=== PATIENT | female | born 1940 | race Caucasian/White ===

== ENCOUNTER 2017-06-21 16:08 | Inpatient (IN) | payer MEDICARE, BC ==
[~2017-06-21] VITALS: Ht 172.7 cm; Wt 72.6 kg
--- NOTE | ~2017-06-21 | HP ---
PATIENT: TG VARGHESE MEDICAL RECORD: [id number] ACCOUNT: [id number] LOCATION:D.[facility] : 44 ADMISSION DATE: 06/21/17 HISTORY AND PHYSICAL EXAMINATION DATE OF ADMISSION: 06/21/2017 HISTORY OF PRESENT ILLNESS: I saw this patient on 11 p.m. on 06/22/2017. Her primary care physicians have been the [facility] and they do not come here anymore. She is a resident of [place]. She fell there today, suffered a laceration over her left eyebrow. There was no known loss of consciousness. She was brought to the ER where the laceration was repaired. CT evaluation was done of the facial bones, cervical spine and of the head and there was an acute right frontal, temporal, and parietal subdural hematoma noted. There was no definite midline shift. She is admitted to the hospital and Dr. Alexis is consulted. PAST MEDICAL AND SURGICAL HISTORY: Significant for dementia, osteoarthritis, depression, hypothyroidism, overactive bladder, hypertension, non-insulin dependent diabetes, anxiety and hyperlipidemia. PAST SURGICAL HISTORY: None known. ALLERGIES: BELLADONNA, ERYTHROMYCIN, NIACIN, PENICILLIN, AND SULFA. HOME MEDICATIONS: Include Aricept or donepezil 10 mg once a day; lisinopril/ hydrochlorothiazide 20/12.5 once a day; amitriptyline 25 mg p.o. at bedtime; Wellbutrin-XL 300 once a day; citalopram 60 mg daily; lorazepam 0.5 mg p.o. t.i.d.; Namenda XR 28 once a day; Meloxicam 7.5 mg once a day; omeprazole 20 mg once a day; levothyroxine ____ once a day; metformin 500 mg twice a day, Toviaz 4 mg once a day. HABITS: She never smoked. No alcohol or drugs. FAMILY HISTORY: Mother had cancer. Brother had hypertension. SOCIAL HISTORY: Unknown. REVIEW OF SYSTEMS: Unobtainable in this patient with dementia. She is not considered an accurate source for information that she says her primary care doctor is her father who is a chiropractor. PHYSICAL EXAMINATION: VITAL SIGNS: Temperature 97.6, pulse 103, respirations 19, blood pressure 182/92, blood pressure has come down to 123/92. GENERAL: She is easily awakened. She is tearful. She is very demented. She does not know where she is. She states she does not hurt anywhere at all. HEENT: With a laceration above the left eye with some mild swelling noted there. NECK: Supple. HEART: Regular rate and rhythm. LUNGS: Clear. ABDOMEN: Soft, flat, nontender. EXTREMITIES: No edema. NEUROLOGIC: Again, she is very pleasantly confused, which may be her baseline HISTORY AND PHYSICAL [id number] TG VARGHESE if she does have dementia. She follows commands well. LABORATORY DATA: CBC with a white count of 7600, hemoglobin 12.9 and platelet count of 176. INR 1.02. Basic metabolic panel is all essentially normal. Glucose is 120. Liver functions are all normal. CT of the cervical spine shows degenerative changes, no acute fracture. CT of the facial bones shows no acute fracture. CT of the head shows acute right frontal, temporal, parietal, subdural hematoma. No definite midline shift, chronic small vessel ischemic changes are seen. ASSESSMENT: 1. Fall at [place], suffering a right subdural hematoma. 2. Dementia. PLAN: Dr. Alexis has been consulted. She is on dexamethasone, labetalol. Other tests or procedures as warranted. She is a DNR from [place] and we will continue to honor that here. TRANSINT:[id number] Voice Confirmation ID: [id number] DOCUMENT ID: [id number] HENRRY ARREOLA MD at 1739 CC: [id number] DICTATION DATE: 06/22/17 1202 ELECTRICAL MAINTENANCE MECHANIC: 06/22/17 1251 ADM IN [place] [id number] [place] [address]
[2017-06-21 17:37] LABS: BASOPHILS 0.3 % (0-2); EOSINOPHILS 2.8 % (0-7); HEMATOCRIT 39.3 % (36.0-48.0); HEMOGLOBIN 12.9 g/dL (12-16); IMMATURE GRANULOCYTES 1.2 % (0-5); MCH 33.4 pg (26.0-34.0); MCHC 32.8 g/dL (31.0-37.0); MCV 101.8 fL (80.0-100.0); MEAN PLATELET VOLUME 10.4 fL (7.4-10.4); MONOCYTES 8.3 % (2-11); NEUTROPHILS 72.4 % (40-80); PLATELET COUNT 176 10x3/uL (130-400); RBC 3.86 10x6/uL (4.00-5.40); RDW 14.3 % (11.5-14.5); WBC 7.6 10x3/uL (4.8-10.8)
[2017-06-21 17:46] LABS: INR 1.02 (0.85-1.17)
[2017-06-21 17:52] LABS: ALBUMIN 3.4 g/dL (3.4-5.0); ANION GAP 9.8 mmol/L (8-16); BILIRUBIN - TOTAL 0.25 mg/dL (0.2-1.3); CARBON DIOXIDE 32.8 mmol/L (21.0-32.0); CREATININE - SERUM 1.2 mg/dL (0.6-1.3); POTASSIUM - SERUM 3.6 mmol/L (3.5-5.1); PROTEIN - SERUM 6.2 g/dL (6.4-8.2)
[2017-06-21 20:55] VITALS: BP 138/79; BMI 24.3
[2017-06-21 21:00] VITALS: BP 138/79
[2017-06-21 22:00] VITALS: BP 132/79
[2017-06-21 23:00] VITALS: BP 123/92
[2017-06-22] VITALS (8 sets, daily range): BP systolic 124–147; BP diastolic 66–82; Ht 172.7 cm; Wt 72.6 kg
[2017-06-22] MEDS ORDERED: ARICEPT10 MG PO (04:00)
[2017-06-22] MEDS ORDERED: CELEXA40 MG PO (04:00)
[2017-06-22] MEDS ORDERED: ELAVIL25 MG PO (04:01)
[2017-06-22] MEDS ORDERED: MOBIC7.5 MG PO (04:03)
[2017-06-22] MEDS ORDERED: NAMENDA XR28 MG PO (04:04)
[2017-06-22] MEDS ORDERED: OMEPRAZOLE20 M1 PO (04:05)
[2017-06-22] MEDS ORDERED: SYNTHROID50 MCG PO (04:06)
[2017-06-22] MEDS ORDERED: TOVIAZ4 MG PO (04:06)
[2017-06-22] MEDS ORDERED: ZESTORETIC 20-1 EACH PO (04:07)
[2017-06-22] MEDS ORDERED: BUPROPION XL300 MG PO (04:07)
[2017-06-22] MEDS ORDERED: GLUCOPHAGE500 MG PO (04:08)
[2017-06-22] MEDS ORDERED: ATIVAN0.5 MG PO (04:09)
[2017-06-23 00:43] VITALS: BP 125/55
[2017-06-23 05:02] VITALS: BP 123/48
[2017-06-23 09:30] VITALS: BP 136/57
[2017-06-23 12:07] VITALS: BP 137/68
[2017-06-23 16:12] VITALS: BP 149/85
[2017-06-23 22:07] VITALS: BP 159/55
[2017-06-24 00:25] VITALS: BP 155/62
[2017-06-24 05:54] VITALS: BP 167/75
[2017-06-24 08:44] VITALS: BP 164/70
[2017-06-24 12:34] VITALS: BP 150/72
[2017-06-24 17:18] VITALS: BP 158/63
[2017-06-24 21:17] VITALS: BP 153/73
[2017-06-25 00:44] VITALS: BP 146/70
[2017-06-25 06:49] VITALS: BP 170/75
[2017-06-25 08:53] VITALS: BP 93/62
[2017-06-25 13:34] VITALS: BP 185/75
[2017-06-25 16:53] VITALS: BP 154/66
[2017-06-25 20:00] VITALS: BP 156/59
[2017-06-26] VITALS: BP 154/58
[2017-06-26 04:00] VITALS: BP 158/70
[2017-06-26 08:56] VITALS: BP 168/73
[2017-06-26 11:49] VITALS: BP 142/56
== END 2017-06-26 15:35 | disposition home or self-care (01) | DRG 87 ==
LOC: D.ER 16:08 → D.MS 19:25 → EDBD 19:25 → D.ICU 19:25 → D.MS 06-22 20:50
PROVIDERS: Emergency Medicine; Nurse Practitioner Family
PROC: 0HQ1XZZ Repair Face Skin, External Approach (ICD-10-PCS; principal; 2017-06-21)
DX: S06.5X0A Traumatic subdural hemorrhage without loss of consciousness, initial encounter (principal); W19.XXXA Unspecified fall, initial encounter; S06.330A Contusion and laceration of cerebrum, unspecified, without loss of consciousness, initial encounter; S01.112A Laceration without foreign body of left eyelid and periocular area, initial encounter; F03.90 Unspecified dementia, unspecified severity, without behavioral disturbance, psychotic disturbance, mood disturbance, and anxiety; N32.81 Overactive bladder; I10 Essential (primary) hypertension; E11.9 Type 2 diabetes mellitus without complications; F41.9 Anxiety disorder, unspecified; E78.5 Hyperlipidemia, unspecified

== ENCOUNTER 2017-07-08 16:26 | Emergency (ER) | payer BC, MEDICARE ==
[2017-06-22 11:22] VITALS: BMI 24.3
[~2017-07-08 16:26] MED LIST: ARICEPT10 MG PO; ATIVAN0.5 MG PO; BUPROPION XL300 MG PO; CELEXA40 MG PO; ELAVIL25 MG PO; GLUCOPHAGE500 MG PO; MOBIC7.5 MG PO; NAMENDA XR28 MG PO; OMEPRAZOLE20 M1 PO; SYNTHROID50 MCG PO; TOVIAZ4 MG PO; ZESTORETIC 20-1 EACH PO
[2017-07-08 17:04] LABS: BASOPHILS 0.4 % (0-2); EOSINOPHILS 3.9 % (0-7); HEMATOCRIT 40.9 % (36.0-48.0); HEMOGLOBIN 13.5 g/dL (12-16); IMMATURE GRANULOCYTES 1.4 % (0-5); LYMPHOCYTES 18.6 % (15-50); MCH 33.4 pg (26.0-34.0); MCV 101.2 fL (80.0-100.0); MEAN PLATELET VOLUME 10.7 fL (7.4-10.4); NEUTROPHILS 66.7 % (40-80); PLATELET COUNT 206 10x3/uL (130-400); RBC 4.04 10x6/uL (4.00-5.40); RDW 13.5 % (11.5-14.5); WBC 7.9 10x3/uL (4.8-10.8)
[2017-07-08 17:36] LABS: ALBUMIN 3.4 g/dL (3.4-5.0); ANION GAP 13.8 mmol/L (8-16); BILIRUBIN - TOTAL 0.24 mg/dL (0.2-1.3); CARBON DIOXIDE 31.9 mmol/L (21.0-32.0); CREATININE - SERUM 1.2 mg/dL (0.6-1.3); POTASSIUM - SERUM 3.7 mmol/L (3.5-5.1); PROTEIN - SERUM 6.8 g/dL (6.4-8.2)
[2017-07-08 19:09] LABS: APPEARANCE CLEAR (CLEAR); COLOR YELLOW (YELLOW)
[2017-07-08 19:10] LABS: BILIRUBIN NEGATIVE (NEGATIVE); EPITHELIAL CELLS 0-5 /hpf (0-5); GLUCOSE NEGATIVE (NEGATIVE); KETONE NEGATIVE (NEGATIVE); NITRITE NEGATIVE (NEGATIVE); PROTEIN NEGATIVE (NEGATIVE); RED CELLS - URINE OCC /hpf (0-5); UROBILINOGEN NORMAL (NORMAL)
[2017-07-08 19:11] LABS: BACTERIA FEW /hpf (NONE SEEN)
== END 2017-07-08 20:20 | disposition home or self-care (01) ==
LOC: D.ER 16:26
PROVIDERS: Family Medicine
DX: K59.00 Constipation, unspecified (principal); R10.9 Unspecified abdominal pain

== ENCOUNTER 2017-12-01 09:48 | Emergency (ER) | payer BC, MEDICARE ==
[2017-12-01 09:51] VITALS: Ht 172.7 cm
[2017-12-01 10:39] LABS: APPEARANCE CLEAR (CLEAR); BILIRUBIN NEGATIVE (NEGATIVE); COLOR STRAW (YELLOW); GLUCOSE NEGATIVE (NEGATIVE); KETONE NEGATIVE (NEGATIVE); NITRITE NEGATIVE (NEGATIVE); PROTEIN NEGATIVE (NEGATIVE); UROBILINOGEN NORMAL (NORMAL)
[2017-12-01 10:49] LABS: BASOPHILS 0.4 % (0-2); EOSINOPHILS 1.6 % (0-7); HEMATOCRIT 38.4 % (36.0-48.0); HEMOGLOBIN 12.5 g/dL (12-16); IMMATURE GRANULOCYTES 1.3 % (0-5); LYMPHOCYTES 19.2 % (15-50); MCH 32.4 pg (26.0-34.0); MCHC 32.6 g/dL (31.0-37.0); MCV 99.5 fL (80.0-100.0); MEAN PLATELET VOLUME 10.9 fL (7.4-10.4); MONOCYTES 7.3 % (2-11); NEUTROPHILS 70.2 % (40-80); PLATELET COUNT 179 10x3/uL (130-400); RBC 3.86 10x6/uL (4.00-5.40); RDW 13.2 % (11.5-14.5); WBC 7.4 10x3/uL (4.8-10.8)
[2017-12-01 11:01] LABS: ALBUMIN 3.2 g/dL (3.4-5.0); ANION GAP 8.3 mmol/L (8-16); BILIRUBIN - TOTAL 0.3 mg/dL (0.2-1.3); CARBON DIOXIDE 32.4 mmol/L (21.0-32.0); CREATININE - SERUM 1.1 mg/dL (0.6-1.3); POTASSIUM - SERUM 3.7 mmol/L (3.5-5.1); PROTEIN - SERUM 6.7 g/dL (6.4-8.2)
[2017-12-01 13:39] VITALS: BP 134/58
== END 2017-12-01 13:40 ==
LOC: D.ER 09:48
PROVIDERS: Family Medicine
DX: R10.9 Unspecified abdominal pain (principal); F03.90 Unspecified dementia, unspecified severity, without behavioral disturbance, psychotic disturbance, mood disturbance, and anxiety

== ENCOUNTER 2018-05-19 15:03 | Emergency (ER) | payer BC, MEDICARE | END 2018-05-19 17:46 | disposition home or self-care (01) | LOC: D.ER 15:03 | DX: S80.01XA Contusion of right knee, initial encounter (principal); W18.30XA Fall on same level, unspecified, initial encounter; Y93.89 Activity, other specified; Y92.099 Unspecified place in other non-institutional residence as the place of occurrence of the external cause; M25.561 Pain in right knee; F03.90 Unspecified dementia, unspecified severity, without behavioral disturbance, psychotic disturbance, mood disturbance, and anxiety; E11.9 Type 2 diabetes mellitus without complications; I10 Essential (primary) hypertension ==

== ENCOUNTER 2018-11-26 23:04 | Inpatient (IN) | payer MEDICARE, BC ==
[~2018-11-26 23:04] MED LIST changes: +ACETAMINOPHEN500 M1 PO; +CYCLOBENZAPRINE10 MG PO
[2018-11-26] MEDS ORDERED: ALBUTEROL SULF8.5 GM INH (23:23)
[2018-11-26] MEDS ORDERED: BROMFED-DM COU473 ML PO (23:26)
[2018-11-26] MEDS ORDERED: IMODIUM2 MG PO (23:28)
[2018-11-26] MEDS ORDERED: MIRALAX17 GM PO (23:30)
[2018-11-26] MEDS ORDERED: SEROQUEL25 MG PO (23:32)
[2018-11-27] VITALS (8 sets, daily range): BP systolic 95–149; BP diastolic 46–68; BMI 33.5; BMI 33.4
[2018-11-27 00:13] LABS: APTT 26.1 SECONDS (22.8-39.4); INR 0.97 (0.85-1.17); PROTIME 12.4 SECONDS (11.6-15.0)
--- NOTE | 2018-11-27 00:14 | NUR ---
URINE SENT TO LAB
[2018-11-27 00:24] LABS: BASOPHILS 0.2 % (0-2); EOSINOPHILS 3.3 % (0-7); HEMATOCRIT 36.4 % (36.0-48.0); HEMOGLOBIN 12.4 g/dL (12-16); IMMATURE GRANULOCYTES 0.6 % (0-5); LYMPHOCYTES 27.7 % (15-50); MCH 33.6 pg (26.0-34.0); MCHC 34.1 g/dL (31.0-37.0); MCV 98.6 fL (80.0-100.0); MEAN PLATELET VOLUME 10.7 fL (7.4-10.4); MONOCYTES 8.5 % (2-11); NEUTROPHILS 59.7 % (40-80); PLATELET COUNT 199 10x3/uL (130-400); RBC 3.69 10x6/uL (4.00-5.40); RDW 13.1 % (11.5-14.5)
[2018-11-27 00:31] LABS: ALBUMIN 3.3 g/dL (3.4-5.0); ALKALINE PHOSPHATASE 94 U/L (46-116); ALT (SGPT) 19 U/L (10-68); BILIRUBIN - TOTAL 0.31 mg/dL (0.2-1.3); CALC OSMOLALITY 284 mosm/kg (275-300); CALCIUM 8.9 mg/dL (8.5-10.1); CARBON DIOXIDE 30.2 mmol/L (21.0-32.0); CHLORIDE - SERUM 101 mmol/L (98-107); GLUCOSE 138 mg/dL (74-106); POTASSIUM - SERUM 3.3 mmol/L (3.5-5.1); PROTEIN - SERUM 6.8 g/dL (6.4-8.2); SODIUM 141 mmol/L (136-145); UREA NITROGEN 17 mg/dL (7-18); eGFR NON AFRICAN AMERICAN 57 mL/min (90-120)
[2018-11-27 00:32] LABS: CKMB 0.5 U/L (0.0-3.6); CREATINE KINASE 35 UL (21-215)
[2018-11-27 00:35] LABS: TROPONIN-I < 0.017 ng/mL (0.000-0.060)
[2018-11-27 00:39] LABS: APPEARANCE CLEAR (CLEAR); COLOR YELLOW (YELLOW); SPECIFIC GRAVITY 1.025 (1.005-1.020)
[2018-11-27 00:40] LABS: BILIRUBIN NEGATIVE (NEGATIVE); GLUCOSE NEGATIVE (NEGATIVE); KETONE NEGATIVE (NEGATIVE); NITRITE NEGATIVE (NEGATIVE); PROTEIN TRACE mg/dL (NEGATIVE); UROBILINOGEN NORMAL (NORMAL)
[2018-11-27 00:41] LABS: BACTERIA NONE SEEN /hpf (NONE SEEN); EPITHELIAL CELLS 0-5 /hpf (0-5); RED CELLS - URINE NONE SEEN /hpf (0-5); WHITE CELLS - URINE 0-5 /hpf (0-5)
--- NOTE | 2018-11-27 00:44 | NUR ---
NOTIFIED EDP CARMENCITA OF PT CRITICAL LAB OF LACTIC ACID 2.9. NO VERBAL ORDERS GIVEN
--- NOTE | 2018-11-27 01:22 | NUR ---
PT ASSISTED WITH BEDPAN.
--- NOTE | 2018-11-27 02:06 | NUR ---
PT ARRIVED TO M3 WITH HOSPITAL STAFF, PT ALERT, BUT DISORIENTED TO PLACE, TIME AND SITUATION.
--- NOTE | 2018-11-27 03:54 | NUR ---
ASSISTED PT WITH BEDPAN.
--- NOTE | 2018-11-27 08:18 | NUR ---
THE PATIENT APPEARED TO BE SLEEPING BUT EASILY AWOKE WHEN STAFF ENTERED HER ROOM. BED IS IN THE LOW POSITION WITH SIDERAILS X2 AND CALL LIGHT WITHIN REACH. THE PATIENT WAS EDUCATED ON AND DEMONSTRATES UNDERSTANDING OF CALL LIGHT. THE PATIENT APPEARS COMFORTABLE WITH NO QUESTIONS OR CONCERNS AT THIS TIME.
--- NOTE | 2018-11-27 11:10 | MORECARE ---
CASE MANAGEMENT DISCHARGE SUMMARY PATIENT: TG VARGHESE UNIT: [id number] ADM DATE: 11/27/18 AGE: 78 : 42 SEX: F ROOM/BED: D.1209 AUTHOR: ARA REESE PHYSICIAN: REFERRING PHYSICIAN: CARIN SERRANO MD DATE OF SERVICE: 11/27/18 Discharge Plan Patient Name: TG VARGHESE [facility] [facility] 1940 Planned Disposition: Anticipated Discharge Date: Discharge Date: Expected LOS: Initial Reviewer: [email or web address] Initial Review Date: 11/27/2018 Generated: 11/27/18 12:10 pm Patient Name: TG VARGHESE Page 98011 at 1110 All edits/amendments must be made on the electronic document DICTATION DATE: 11/27/18 1110 SUPERVISOR DECORATING: AVIS 11/27/18 1110 RPT#: [id number] DC DATE: STATUS: ADM IN [facility] [address] [place] [address] END OF REPORT
[2018-11-27 11:22] LABS: BASOPHILS 0.2 % (0-2); EOSINOPHILS 0 % (0-7); HEMOGLOBIN 11.8 g/dL (12-16); LYMPHOCYTES 7.7 % (15-50); MCHC 33.7 g/dL (31.0-37.0); MCV 97.8 fL (80.0-100.0); MEAN PLATELET VOLUME 10.4 fL (7.4-10.4); MONOCYTES 3.3 % (2-11); NEUTROPHILS 86.8 % (40-80); PLATELET COUNT 187 10x3/uL (130-400); RBC 3.58 10x6/uL (4.00-5.40); RDW 12.7 % (11.5-14.5)
[2018-11-27 11:32] LABS: WBC 6.1 10x3/uL (4.8-10.8)
--- NOTE | 2018-11-27 14:36 | MORECARE ---
CASE MANAGEMENT DISCHARGE SUMMARY PATIENT: TG VARGHESE UNIT: [id number] ADM DATE: 11/27/18 AGE: 78 : 42 SEX: F ROOM/BED: D.1209 AUTHOR: ARA REESE PHYSICIAN: REFERRING PHYSICIAN: CARIN SERRANO MD DATE OF SERVICE: 11/27/18 Discharge Plan Patient Name: TG VARGHESE Facility: [facility]:[place] : 1940 Planned Disposition: Anticipated Discharge Date: Discharge Date: Expected LOS: Initial Reviewer: [email or web address] Initial Review Date: 11/27/2018 Generated: 11/27/18 3:36 pm Comments DCP- Discharge Planning Updated by [email or web address]: Shelbie Hartley on 11/27/18 1:[address] Patient Name: TG VARGHESE Admission Status: ER Accout number: [id number] Admission Date: 11-27-2018 : 1940 Admission Diagnosis: Attending: CARIN SERRANO Current LOS: 1 Anticipated DC Date: Planned Disposition: Primary Insurance: MEDICARE A & B Discharge Planning Comments: PATIENT IS A RESIDENT OF [facility]. PATIENT VERY CONFUSED. CM WILL FOLLOW AND ASSIST NEEDED WITH DC PLANNING/NEEDS. Residential Care Facility Manager: Shelbie Hartley DCPIA - Discharge Planning Initial Assessment Updated by [email or web address]: Shelbie Hartley on 11/27/18 2:29 pm * Is the patient Alert and Oriented? No * Preadmission Environment Discharge Planner Usp * Facility Name [facility] Last DP export: 11/27/18 10:10 a Patient Name: TG VARGHESE Page 54584 at 1436 All edits/amendments must be made on the electronic document DICTATION DATE: 11/27/181434 CASINO GAMING INSPECTOR: AVIS 11/27/18 1435 RPT#: [id number] DC DATE: STATUS: ADM IN [facility] [address] [place] [address] END OF REPORT
--- NOTE | 2018-11-27 19:35 | NUR ---
LYING IN BED. ALERT AND ORIENTED TO SELF ONLY. CONFUSED AND FORGETFUL. ANIL ALARM ON FOR PT SAFETY. RESP IRREG. SOB AT TIMES. O2 @ 2L/NC. INCONT OF URINE AT THIS TIME. BRIEFS CHANGED AND CARA CARE PERFORMED. NONPROD COUGH AT TIMES. SALINE LOCK NOTED TO LT FOREARM. NO DISTRESS. SR ELEVATED X3. CL IN REACH.
[2018-11-28 00:15] VITALS: BP 116/55
--- NOTE | 2018-11-28 01:56 | NUR ---
HAS BEEN AWAKE ALL NIGHT. CONFUSED AND TRYING TO GET OOB WITHOUT ASSIST CAUSING BED ALARM TO ACTIVATE. UNABLE TO STAND WITHOUT ASSIST X1-2. SOB NOTED AT TIMES. O2 @ 2L/NC. SR ELEVATED X3. CL IN REACH.
[2018-11-28 04:28] VITALS: BP 147/58
[2018-11-28 07:22] LABS: BASOPHILS 0.3 % (0-2); HEMATOCRIT 38.1 % (36.0-48.0); HEMOGLOBIN 12.4 g/dL (12-16); IMMATURE GRANULOCYTES 1.7 % (0-5); LYMPHOCYTES 23.6 % (15-50); MCH 32.5 pg (26.0-34.0); MCHC 32.5 g/dL (31.0-37.0); MEAN PLATELET VOLUME 10.5 fL (7.4-10.4); MONOCYTES 10.5 % (2-11); NEUTROPHILS 62.9 % (40-80); PLATELET COUNT 200 10x3/uL (130-400); RBC 3.81 10x6/uL (4.00-5.40); WBC 7.6 10x3/uL (4.8-10.8)
--- NOTE | 2018-11-28 07:27 | NUR ---
THE PATIENT WAS AWAKE AND LYING IN BED WHEN STAFF ENTERED HER ROOM. BED IS IN THE LOW POSITION WITH SIDERAILS X3 AND CALL LIGHT WITHIN REACH. BED ALARMS CHECKED AND FUNCTIONING PEOPERLY. THE PATIENT IS UNABLE TO DEMONSTRATE THE NEED TO CALL FOR STAFF WITH ASSISTANCE WITH ADLS. THE PATIENT APPEARS COMFORTABLE WITH NO QUESTIONS OR CONCERNS AT THIS TIME.
[2018-11-28 07:33] LABS: ANION GAP 13.2 mmol/L (8-16); CALCIUM 9.1 mg/dL (8.5-10.1); POTASSIUM - SERUM 3.2 mmol/L (3.5-5.1)
[2018-11-28 07:35] LABS: CREATININE - SERUM 1.3 mg/dL (0.6-1.3)
[2018-11-28 08:02] VITALS: BP 144/53
[2018-11-28] MEDS ORDERED: LEVAQUIN750 MG PO (09:05)
--- NOTE | 2018-11-28 10:02 | MORECARE ---
CASE MANAGEMENT DISCHARGE SUMMARY PATIENT: TG VARGHESE UNIT: [id number] ADM DATE: 11/27/18 AGE: 78 : 42 SEX: F ROOM/BED: D.1209 AUTHOR: ARA REESE PHYSICIAN: REFERRING PHYSICIAN: CARIN SERRANO MD DATE OF SERVICE: 11/28/18 Discharge Plan Patient Name: TG VARGHESE Facility: [facility]:[place] : 1940 Planned Disposition: Anticipated Discharge Date: Discharge Date: Expected LOS: Initial Reviewer: [id number] Initial Review Date: 11/27/2018 Generated: 11/28/18 11:01 am Comments DCP- Discharge Planning Updated by [email or web address]: Shelbie Hartley on 11/28/18 8:[address] Patient Name: TG VARGHESE Admission Status: ER Accout number: [id number] Admission Date: 11-27-2018 : 1940 Admission Diagnosis: Attending: CARIN SERRANO Current LOS: 1 Anticipated DC Date: Planned Disposition: Primary Insurance: MEDICARE A & B Discharge Planning Comments: PATIENT IS A RESIDENT OF [facility], IT IS ASSISTED LIVING. CM CALLED [facility] AT [phone] TO VERIFY IS ASSISTED LIVING AND TO SEE IF PATIENT IS NORMALLY CONFUSED TO PLACE AND TIME, ADMINISTRATION WAS IN A MEETING, WE NEED TO CALL BACK. CM TO FOLLOW AND ASSIST NEEDED. Environmental Compliance Manager: Shelbie Hartley DCP- Discharge Planning Updated by [id number]: Shelbie Hartley on 11/27/18 1:[address] Patient Name: TG VARGHESE Admission Status: ER Accout number: [id number] Admission Date: 11-27-2018 : 1940 Admission Diagnosis: Attending: CARIN SERRANO Current LOS: 1 Anticipated DC Date: Planned Disposition: Primary Insurance: MEDICARE A & B Discharge Planning Comments: PATIENT IS A RESIDENT OF [facility]. PATIENT VERY CONFUSED. CM WILL FOLLOW AND ASSIST NEEDED WITH DC PLANNING/NEEDS. Environmental Compliance Manager: Shelbie Hartley DCPIA - Discharge Planning Initial Assessment Updated by [email or web address]: Shelbie Hartley on 11/27/18 2:29 pm * Is the patient Alert and Oriented? No * Preadmission Environment [facility] * Facility Name [facility] DP export: 11/27/18 1:36 p Patient Name: TG VARGHESE Page 85107 at 1002 All edits/amendments must be made on the electronic document DICTATION DATE: 11/28/18 100 GANG RIDER: AVIS 11/28/18 1001 RPT#: [id number] DC DATE: STATUS: ADM IN [facility] [address] [place] [address] END OF REPORT
--- NOTE | 2018-11-28 11:08 | MORECARE ---
CASE MANAGEMENT DISCHARGE SUMMARY PATIENT: TG VARGHESE UNIT: [id number] ADM DATE: 11/27/18 AGE: 78 : 42 SEX: F ROOM/BED: D.1209 AUTHOR: ARA REESE PHYSICIAN: REFERRING PHYSICIAN: CARIN SERRANO MD DATE OF SERVICE: 11/28/18 Discharge Plan Patient Name: TG VARGHESE Facility: [facility]:[place] : 1940 Planned Disposition: Anticipated Discharge Date: Discharge Date: Expected LOS: Initial Reviewer: [id number] Initial Review Date: 11/27/2018 Generated: 11/28/18 12:08 pm Comments DCP- Discharge Planning Updated by [email or web address]: Shelbie Hartley on 11/28/18 10:[address] Patient Name: TG VARGHESE Admission Status: ER Accout number: [id number] Admission Date: 11-27-2018 : 1940 Admission Diagnosis: Attending: CARIN SERRANO Current LOS: 1 Anticipated DC Date: Planned Disposition: Primary Insurance: MEDICARE A & B Discharge Planning Comments: PATIENT IS A RESIDENT OF [facility], IT IS ASSISTED LIVING. CM CALLED [facility] AT [phone] TO VERIFY IS ASSISTED LIVING AND TO SEE IF PATIENT IS NORMALLY CONFUSED TO PLACE AND TIME, ADMINISTRATION WAS IN A MEETING, WE NEED TO CALL BACK. CM TO FOLLOW AND ASSIST NEEDED. Watch Crystal Edge Grinder: Shelbie Hartley Appended by Shelbie Hartley on 11/28/2018 11:07 CDT: CM SPOKE WITH [facility] AND THEY STATE SHE WAS PREVIOUSLY ON HOSPICE THROUGH [facility] AND WANTS AN ORDER TO RESUME. DR. SCHWAB NOTIFIED, WAITING FOR CALL BACK. [facility] NUMBER TO CALL IS [phone] AND FAX IS [phone]. IF TO RETURN TO HOSPICE, FAX PAPERS TO [facility] AND [facility] AND NOTIFY [facility] SO THEY CAN PICK HER UP. DCP- Discharge Planning Updated by [email or web address]: Shelbie Hartley on 11/27/18 1:[address] Patient Name: TG VARGHESE Admission Status: ER Accout number: [id number] Admission Date: 11-27-2018 : 1940 Admission Diagnosis: Attending: CARIN SERRANO Current LOS: 1 Anticipated DC Date: Planned Disposition: Primary Insurance: MEDICARE A & B Discharge Planning Comments: PATIENT IS A RESIDENT OF [facility]. PATIENT VERY CONFUSED. CM WILL FOLLOW AND ASSIST NEEDED WITH DC PLANNING/NEEDS. Watch Crystal Edge Grinder: Shelbie Hartley DCPIA - Discharge Planning Initial Assessment Updated by [email or web address]: Shelbie Hartley on 11/27/18 2:29 pm * Is the patient Alert and Oriented? No * Preadmission Environment Intermediate Intermediate * Facility Name [facility] Last DP export: 11/28/18 9:01 a Patient Name: TG VARGHESE Page 59227 at 1108 All edits/amendments must be made on the electronic document DICTATION DATE: 11/28/181107 BASTING PULLER: AVIS 11/28/18 1108 RPT#: [id number] DC DATE: STATUS: ADM IN [facility] [address] [place] [address] END OF REPORT
--- NOTE | 2018-11-28 11:15 | MORECARE ---
CASE MANAGEMENT DISCHARGE SUMMARY PATIENT: TG VARGHESE UNIT: [id number] ADM DATE: 11/27/18 AGE: 78 : 42 SEX: F ROOM/BED: D.1209 AUTHOR: ARA REESE PHYSICIAN: REFERRING PHYSICIAN: CARIN SERRANO MD DATE OF SERVICE: 11/28/18 Discharge Plan Patient Name: TG VARGHESE Facility: [facility]:[place] : 1940 Planned Disposition: Anticipated Discharge Date: Discharge Date: Expected LOS: Initial Reviewer: [email or web address] Initial Review Date: 11/27/2018 Generated: 11/28/18 12:14 pm Comments DCP- Discharge Planning Updated by [email or web address]: Shelbie Hartley on 11/28/18 10:[address] Patient Name: TG VARGHESE Admission Status: ER Accout number: [id number] Admission Date: 11-27-2018 : 1940 Admission Diagnosis: Attending: CARIN SERRANO Current LOS: 1 Anticipated DC Date: Planned Disposition: Primary Insurance: MEDICARE A & B Discharge Planning Comments: PATIENT IS A RESIDENT OF [facility], IT IS ASSISTED LIVING. CM CALLED [facility] AT [phone] TO VERIFY IS ASSISTED LIVING AND TO SEE IF PATIENT IS NORMALLY CONFUSED TO PLACE AND TIME, ADMINISTRATION WAS IN A MEETING, WE NEED TO CALL BACK. CM TO FOLLOW AND ASSIST NEEDED. Supervisor Wool Shearing: Shelbie Hartley Appended by Shelbie Hartley on 11/28/2018 11:07 CDT: [facility] AND THEY STATE SHE WAS PREVIOUSLY ON HOSPICE THROUGH [facility] AND WANTS AN ORDER TO RESUME. DR. SCHWAB NOTIFIED, WAITING FOR CALL BACK. [facility] NUMBER TO CALL IS [phone] AND FAX IS [phone]. IF TO RETURN TO HOSPICE, FAX PAPERS TO [facility] AND [facility] AND NOTIFY [facility] SO THEY CAN PICK HER UP. DCP- Discharge Planning Updated by [email or web address]: Shelbie Hartley on 11/27/18 1:[address] Patient Name: TG VARGHESE Admission Status: ER Accout number: [id number] Admission Date: 11-27-2018 : 1940 Admission Diagnosis: Attending: CARIN SERRANO Current LOS: 1 Anticipated DC Date: Planned Disposition: Primary Insurance: MEDICARE A & B Discharge Planning Comments: PATIENT IS A RESIDENT OF [facility]. PATIENT VERY CONFUSED. CM WILL FOLLOW AND ASSIST NEEDED WITH DC PLANNING/NEEDS. Supervisor Wool Shearing: Shelbie Hartley DCPIA - Discharge Planning Initial Assessment Updated by [email or web address]: Shelbie Hartley on 11/27/18 2:29 pm * Is the patient Alert and Oriented? No * Preadmission Environment Snf [facility] * Facility Name [facility] External Providers External Provider: OTHER-OTHER Next Contact Date: Service Request Date: Service Type: Resolution: Reviewer: Comments: External Provider: [facility] Next Contact Date: Service Request Date: Service Type: Resolution: Reviewer: Comments: Last DP export: 11/28/18 10:08 a Patient Name: TG VARGHESE Page 59237 at 1115 All edits/amendments must be made on the electronic document DICTATION DATE: 11/28/18 1114 LOADING UNIT TOOL SETTER: AVIS 11/28/18 1114 RPT#: [id number] DC DATE: STATUS: ADM IN [facility] [address] [place] [address] END OF REPORT
--- NOTE | 2018-11-28 11:22 | MORECARE ---
CASE MANAGEMENT DISCHARGE SUMMARY PATIENT: TG VARGHESE UNIT: [id number] ADM DATE: 11/27/18 AGE: 78 : 42 SEX: F ROOM/BED: D.1209 AUTHOR: MARY ANNDOC PHYSICIAN: REFERRING PHYSICIAN: CARIN SERRANO MD DATE OF SERVICE: 11/28/18 Discharge Plan Patient Name: TG VARGHESE Facility: [facility]:[place] : 1940 Planned Disposition: Anticipated Discharge Date: Discharge Date: Expected LOS: Initial Reviewer: [email or web address] Initial Review Date: 11/27/2018 Generated: 11/28/18 12:22 pm Comments DCP- Discharge Planning Updated by [email or web address]: Shelbie Hartley on 11/28/18 10:[address] Patient Name: TG VARGHESE Admission Status: ER Accout number: [id number] Admission Date: 11-27-2018 : 1940 Admission Diagnosis: Attending: CARIN SERRANO Current LOS: 1 Anticipated DC Date: Planned Disposition: Primary Insurance: MEDICARE A & B Discharge Planning Comments: PATIENT IS A RESIDENT OF [facility], IT IS ASSISTED LIVING. CALLED [facility] AT [phone] TO VERIFY IS ASSISTED LIVING AND TO SEE IF PATIENT IS NORMALLY CONFUSED TO PLACE AND TIME, ADMINISTRATION WAS IN A MEETING, WE NEED TO CALL BACK. CM TO FOLLOW AND ASSIST NEEDED. Presser Hand: Shelbie Hartley Appended by Shelbie Hartley on 11/28/2018 11:07 CDT: CM SPOKE WITH [facility] AND THEY STATE SHE WAS PREVIOUSLY ON HOSPICE THROUGH [facility] AND WANTS AN ORDER TO RESUME. DR. SCHWAB NOTIFIED, WAITING FOR CALL BACK. [facility] NUMBER TO CALL IS [phone] AND FAX IS [phone]. IF TO RETURN TO HOSPICE, FAX PAPERS TO [facility] AND [facility] AND NOTIFY [facility] SO THEY CAN P[facility] HER [facility]. Appended by Shelbie Hartley on 11/28/2018 11:20 CDT: CM FAXED DOCUMENTS TO [facility] AND [facility]. DCP- Discharge Planning Updated by [email or web address]: Shelbie Hartley on 11/27/18 1:[address] Patient Name: TG VARGHESE Admission Status: ER Accout number: [id number] Admission Date: 11-27-2018 : 1940 Admission Diagnosis: Attending: CARIN SERRANO Current LOS: 1 Anticipated DC Date: Planned Disposition: Primary Insurance: MEDICARE A & B Discharge Planning Comments: PATIENT IS A RESIDENT OF [facility]. PATIENT VERY CONFUSED. CM WILL FOLLOW AND ASSIST NEEDED WITH DC PLANNING/NEEDS. Presser Hand: Shelbie Hartley DCPIA - Discharge Planning Initial Assessment Updated by [id number]: Shelbie Hartley on 11/27/18 2:29 pm * Is the patient Alert and Oriented? No * Preadmission Environment Process [facility] * Facility Name [facility] Last DP export: 11/28/18 10:15 a Patient Name: TG VARGHESE Page 40731 at 1122 All edits/amendments must be made on the electronic document DICTATION DATE: 11/28/18 112 VACUUM FRAME OPERATOR: AVIS 11/28/18 1121 RPT#: [id number] DC DATE: STATUS: ADM IN [facility] [address] [place] [address] END OF REPORT
--- NOTE | 2018-11-28 12:32 | NUR ---
CALLED REPORT TO JOSEPH CALDERON AT [facility]. [phone]
--- NOTE | 2018-11-28 12:44 | MORECARE ---
CASE MANAGEMENT DISCHARGE SUMMARY PATIENT: TG VARGHESE UNIT: [id number] ADM DATE: 11/27/18 AGE: 78 : 42 SEX: F ROOM/BED: D.1209 AUTHOR: ARA REESE PHYSICIAN: REFERRING PHYSICIAN: CARIN SERRANO MD DATE OF SERVICE: 11/28/18 Discharge Plan Patient Name: TG VARGHESE Facility: [facility]:[place] : 1940 Planned Disposition: Hospice Home Anticipated Discharge Date: 11/28/18 Discharge Date: 11/28/2018 Expected LOS: 1 Initial Reviewer: [email or web address] Initial Review Date: 11/27/2018 Generated: 11/28/18 1:43 pm Comments DCP- Discharge Planning Updated by [email or web address]: Shelbie Hartley on 11/28/18 10:[address] Patient Name: TG VARGHESE Admission Status: ER Accout number: [id number] Admission Date: 11-27-2018 : 1940 Admission Diagnosis: Attending: CARIN SERRANO Current LOS: 1 Anticipated DC Date: Planned Disposition: Primary Insurance: MEDICARE A & B Discharge Planning Comments: PATIENT IS A RESIDENT OF [facility], IT IS ASSISTED LIVING. CALLED [facility] AT [phone] TO VERIFY IS ASSISTED LIVING AND TO SEE IF PATIENT IS NORMALLY CONFUSED TO PLACE AND TIME, ADMINISTRATION WAS IN A MEETING, WE NEED TO CALL BACK. TO FOLLOW AND ASSIST NEEDED. Bailiff: Shelbie Hartley Appended by Shelbie Hartley on 11/28/2018 11:07 CDT: SPOKE WITH [facility] AND THEY STATE SHE WAS PREVIOUSLY ON HOSPICE THROUGH [facility] AND WANTS AN ORDER TO RESUME. DR. SCHWAB NOTIFIED, WAITING FOR CALL BACK. [facility] NUMBER TO CALL IS [phone] AND FAX IS [phone]. IF TO RETURN TO HOSPICE, FAX PAPERS TO [facility] AND [facility] AND NOTIFY [facility] SO THEY CAN PICK HER UP. Appended by Shelbie Hartley on 11/28/2018 11:20 CDT: [facility] FAXED DOCUMENTS TO [facility] AND [facility]. DCP- Discharge Planning Updated by [email or web address]: Shelbie Hartley on 11/27/18 1:[address] Patient Name: TG VARGHESE Admission Status: ER Accout number: [id number] Admission Date: 11-27-2018 : 1940 Admission Diagnosis: Attending: CARIN SERRANO Current LOS: 1 Anticipated DC Date: Planned Disposition: Primary Insurance: MEDICARE A & B Discharge Planning Comments: PATIENT IS A RESIDENT OF [facility]. PATIENT VERY CONFUSED. CM WILL FOLLOW AND ASSIST NEEDED WITH DC PLANNING/NEEDS. Bailiff: Shelbie Hartley DCPIA - Discharge Planning Initial Assessment Updated by [email or web address]: Shelbie Hartley on 11/27/18 2:29 pm * Is the patient Alert and Oriented? No * Preadmission Environment Alf Half-Way * Facility Name [facility] Last DP export: 11/28/18 10:22 a Patient Name: TG VARGHESE Page 81007 at 1244 All edits/amendments must be made on the electronic document DICTATION DATE: 11/28/18 1243 DINKEY LOCOMOTIVE ENGINEER: AVIS 11/28/18 1243 RPT#: [id number] DC DATE:11/28/18 STATUS: DIS IN [facility] [address] [place] [address] END OF REPORT
== END 2018-11-28 12:12 | disposition home health service (06) | DRG 871 ==
LOC: D.ER 23:04 → D.M3 11-27 00:43
PROVIDERS: Emergency Medicine; ADMIT Internal Medicine Nephrology; ATTEND Internal Medicine Nephrology
DX: A41.9 Sepsis, unspecified organism (principal); J96.21 Acute and chronic respiratory failure with hypoxia; J18.9 Pneumonia, unspecified organism; J20.9 Acute bronchitis, unspecified; E87.6 Hypokalemia; I10 Essential (primary) hypertension; E78.5 Hyperlipidemia, unspecified; E11.9 Type 2 diabetes mellitus without complications; F03.90 Unspecified dementia, unspecified severity, without behavioral disturbance, psychotic disturbance, mood disturbance, and anxiety; E03.9 Hypothyroidism, unspecified; N32.81 Overactive bladder; F41.8 Other specified anxiety disorders